=== PATIENT | female | born 1945 | race Caucasian/White ===

== ENCOUNTER 2017-03-20 06:46 | Day surgery (SDC) | payer OTHER ==
[2017-03-14 10:57] VITALS: BMI 25.7
[2017-03-20] MEDS: TROPICAMIDE 1% OPHTH SOLN 15 ML BOTTLE ONE ×3 (07:35→07:45)
[2017-03-20] MEDS: CYCLOPENTOLATE 2% OPHTH SOLN 2 ML BOTTLE ONE ×3 (07:35→07:45)
[2017-03-20] MEDS: CIPROFLOXACIN 0.3% EYE DROPS 5 ML BOTTLE ONE ×3 (07:35→07:45)
[2017-03-20] MEDS: PHENYLEPHRINE 2.5% OPHTH SOLN 15 ML BOTTLE ONE ×3 (07:35→07:45)
[2017-03-20] MEDS ORDERED: MIDAZOLAM HCL 2 MG/2 ML SINGLE DOSE VIAL ONE ×2 (08:34→09:01)
[2017-03-20] MEDS ORDERED: LIDOCAINE 1% P/F 10 MG/ML VIAL ONE (08:44)
[2017-03-20] MEDS ORDERED: TETRACAINE 0.5% OPHTH SOLN 2 ML BOTTLE ONE (08:44)
[2017-03-20] MEDS ORDERED: BSS (NA/CA/MG/K) BALANCED SALT SOLUTION OPHTH SOLN 15 ML BOTTLE ONE (08:44)
[2017-03-20] MEDS ORDERED: EPINEPHrine 1:1,000 1 MG/1 ML - 30ML VIAL (INJECTION) ONE (08:45)
[2017-03-20] MEDS ORDERED: CARBACHOL 0.01% INTRA-OCULAR 1.5 ML VIAL ONE (08:45)
[2017-03-20] MEDS ORDERED: NEO/POLYMYX B SULF/DEXAMETH OPHTHALMIC 5ML BOTTLE ONE (08:45)
[2017-03-20] MEDS ORDERED: TETRACAINE 0.5% OPHTH SOLN 2 ML BOTTLE OD ONE (08:59)
[2017-03-20] MEDS ORDERED: BSS (NA/CA/MG/K) BALANCED SALT SOLUTION OPHTH SOLN 15 ML BOTTLE OD ONE (09:02)
[2017-03-20] MEDS ORDERED: EPINEPHrine 1:1,000 1 MG/1 ML - 30ML VIAL (INJECTION) SQ ONE ×2 (09:02)
[2017-03-20] MEDS ORDERED: DISP SYRIN IO ONE (09:02)
[2017-03-20] MEDS ORDERED: CARBACHOL 0.01% INTRA-OCULAR 1.5 ML VIAL IO ONE (09:02)
[2017-03-20] MEDS ORDERED: HYALURONATE SODIUM IO ONE (09:02)
[2017-03-20] MEDS ORDERED: NEO/POLYMYX B SULF/DEXAMETH OPHTHALMIC 5ML BOTTLE OD ONE ×2 (09:04→09:12)
[2017-03-20] MEDS ORDERED: IBUPROFEN 600 MG TABLET (FP) PO ONE (10:05)
--- NOTE | 2017-03-20 10:06 | OP ---
DATE OF OPERATION: 03/20/2017 OPERATIVE PROCEDURE: Lens Phacoemulsification with Posterior Chamber Intraocular Lens Placement, Right Eye PREOPERATIVE DIAGNOSIS: Visually Significant Cataract of Right Eye POSTOPERATIVE DIAGNOSIS: Visually Significant Cataract of Right Eye SURGEON: Ferny Rice M.D. ANESTHESIA: MAC ANESTHESIOLOGIST: PROCEDURE: The patient was brought to the operating room and placed under monitored anesthesia care by Anesthesia. A drop of Tetracaine was then placed over the right eye. The patient was then prepped and draped in the usual sterile manner. A speculum was then placed over the right eye. The eye was then well irrigated with copious amounts of BSS (balanced salt solution). The operating microscope was then moved into position. A paracentesis was performed using a 15 degree blade. At this point 0.5 mL of 1% preservative free-lidocaine was injected into the anterior chamber. Amvisc plus was then injected into the anterior chamber. A clear corneal incision was then formed using a 2.2 mm keratome. A capsulorrhexis was then performed in a continuous circular fashion beginning with a cystotome completed with an Utratas forceps. Hydrodissection was then performed using BSS on a cannula. The phaco probe was then introduced through the corneal wound and the cataract was removed using the phaco chop technique. Approximately 3 seconds of absolute phaco time was used. The remaining cortex was then removed using irrigation and aspiration with an I/A probe. The capsule was then filled with regular Amvisc and the capsule was noted to be intact. A previously selected foldable posterior chamber intraocular lens was then injected into the capsule through the corneal wound using a lens injector. It was then dialed into position using a Sinskey hook. The Amvisc was then removed using irrigation and aspiration. Miostat was then injected through the paracentesis to constrict the pupil. The paracentesis and corneal wound were then hydrated and noted to be water tight. A drop of Maxitrol was then placed over the eye. The speculum was removed and clear shield was taped over the eye. The patient tolerated the procedure well and there were no surgical complications. The patient was asked to follow up in my office the next day. FERNY RICE M.D. [id number]
[2017-03-20] MEDS ORDERED: ONDANSETRON 4 MG/2 ML VIAL IVPUSH PRN (11:59)
[2017-03-20 12:36] VITALS: TEMP 98.2
[2017-03-20 12:40] VITALS: BP 128/68; PULSE 94
== END 2017-03-20 10:10 | disposition home or self-care (01) ==
LOC: FASU 06:46
PROVIDERS: ATTEND Ophthalmology
PROC: 08RJ3JZ Replacement of Right Lens with Synthetic Substitute, Percutaneous Approach (ICD-10-PCS; principal; 2017-03-20 09:02)
DX: H26.8 Other specified cataract (principal)

== ENCOUNTER 2017-04-24 06:17 | Day surgery (SDC) | payer OTHER ==
[2017-04-10 15:14] VITALS: BMI 27.0
[2017-04-24] MEDS: CYCLOPENTOLATE 2% OPHTH SOLN 2 ML BOTTLE ONE ×3 (06:55→07:05)
[2017-04-24] MEDS: PHENYLEPHRINE 2.5% OPHTH SOLN 15 ML BOTTLE ONE ×3 (06:55→07:05)
[2017-04-24] MEDS: TROPICAMIDE 1% OPHTH SOLN 15 ML BOTTLE ONE ×3 (06:55→07:05)
[2017-04-24] MEDS: CIPROFLOXACIN 0.3% EYE DROPS 5 ML BOTTLE ONE ×3 (06:55→07:05)
[2017-04-24] MEDS ORDERED: LIDOCAINE 1% P/F 10 MG/ML VIAL ONE (07:09)
[2017-04-24] MEDS ORDERED: CARBACHOL 0.01% INTRA-OCULAR 1.5 ML VIAL ONE (07:10)
[2017-04-24] MEDS ORDERED: NEO/POLYMYX B SULF/DEXAMETH OPHTHALMIC 5ML BOTTLE ONE (07:10)
[2017-04-24] MEDS ORDERED: BSS (NA/CA/MG/K) BALANCED SALT SOLUTION OPHTH SOLN 15 ML BOTTLE ONE (07:10)
[2017-04-24] MEDS ORDERED: TETRACAINE 0.5% OPHTH SOLN 2 ML BOTTLE ONE (07:10)
[2017-04-24] MEDS ORDERED: LIDOCAINE HCL 2% JELLY 10 ML CARTRIDGE ONE (07:28)
[2017-04-24] MEDS ORDERED: EPINEPHrine 1:1,000 1 MG/1 ML - 30ML VIAL (INJECTION) ONE (07:28)
[2017-04-24] MEDS ORDERED: MIDAZOLAM HCL 2 MG/2 ML SINGLE DOSE VIAL ONE ×2 (07:40→08:19)
[2017-04-24 08:52] VITALS: TEMP 98
[2017-04-24 09:11] VITALS: BP 108/60; PULSE 65
--- NOTE | 2017-04-24 10:51 | OP ---
DATE OF OPERATION: 04/24/2017 OPERATIVE PROCEDURE: Lens phacoemulsification with posterior chamber intraocular lens placement, left eye. PREOPERATIVE DIAGNOSIS: Visually significant cataract of left eye. POSTOPERATIVE DIAGNOSIS: Visually significant cataract of left eye. SURGEON: Ferny Rice MD ANESTHESIA: MAC. PROCEDURE: The patient was brought to the operating room and placed under monitored anesthesia care by Anesthesia. A drop of Tetracaine was then placed over the left eye. The patient was then prepped and draped in the usual sterile manner. A speculum was then placed over the left eye. The eye was then well irrigated with copious amounts of BSS (balanced salt solution). The operating microscope was then moved into position. A paracentesis was performed using a 15-degree blade. At this point 0.5 mL of 1% preservative-free lidocaine was injected into the anterior chamber. Amvisc Plus was then injected into the anterior chamber. A clear corneal incision was then formed using a 2.2-mm keratome. A capsulorrhexis was then performed in a continuous circular fashion beginning with a cystotome, completed with an Utratas forceps. Hydrodissection was then performed using BSS on a cannula. The phaco probe was then introduced through the corneal wound and the cataract was removed using the phaco chop technique. Approximately 3 seconds of absolute phaco time was used. The remaining cortex was then removed using irrigation and aspiration with an I/A probe. The capsule was then filled with regular Amvisc and the capsule was noted to be intact. A previously selected foldable posterior chamber intraocular lens was then injected into the capsule through the corneal wound using a lens injector. It was then dialed into position using a Sinskey hook. The Amvisc was then removed using irrigation and aspiration. Miostat was then injected through the paracentesis to constrict the pupil. The paracentesis and corneal wound were then hydrated and noted to be watertight. A drop of Maxitrol was then placed over the eye. The speculum was removed and clear shield was taped over the eye. The patient tolerated the procedure well and there were no surgical complications. The patient was asked to follow up in my office the next day. FERNY RICE M.D. [id number]
== END 2017-04-24 09:10 | disposition home or self-care (01) ==
LOC: FASU 06:17
PROVIDERS: ATTEND Ophthalmology
PROC: 08RK3JZ Replacement of Left Lens with Synthetic Substitute, Percutaneous Approach (ICD-10-PCS; principal; 2017-04-24 08:23)
DX: H26.8 Other specified cataract (principal)

== ENCOUNTER 2019-10-30 14:54 | Inpatient (IN) | payer OTHER ==
--- NOTE | 2019-10-30 14:58 | PDOC ---
History of Present Illness - General Chief Complaint: Revisit, Lab Variance Stated Complaint: ABNORMAL LABS, WEIGHT LOSS Time Seen by Provider: 10/30/19 14:55 History Source: Patient, Spouse ( at bedside), Other (Outpatient Lab Results in [facility] from Yesterday; telephone conversation with PCP Dr. Sterling) Exam Limitations: No Limitations - History of Present Illness Initial Comments: 74 y/o female presenting to [facility] on referral from Dr. Sterling. Pt was evaluated in clinic yesterday for generalized fatigue and loss of appetite. Labs revealed hyponatremia and hypokalemia. On arrival, pt denies any acute complaints. States she has been experiencing the fatigue and loss of appetite since approx. February. Believes she has lost approx. 15lbs this year. Intermittent abdominal pain and loose stool secondary to IBS. Denies fevers, chest pain, SOB, difficulty swallowing, acute abdominal pain, dysuria, hematuria, increased urinary frequency, hematochezia, or melena. No recent change in medication. 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 3 years ago. Initially evaluated at [place] then transferred to [facility]. Now managed on Keppra. Does not recall her most recent level. 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 [facility] - Lives at home with Past History - Travel History Traveled outside of the country in the last 30 days: No Close contact w/someone who was outside of country & ill: No - Medical History Allergies/Adverse Reactions: Allergies Allergy/AdvReac Type Severity Reaction Status Date / Time acetaminophen [From Tylenol] Allergy Severe Itching Verified 10/30/19 15:04 Penicillins Allergy Intermediate rash Verified 10/30/19 15:04 Sulfa (Sulfonamide Allergy Intermediate rash Verified 10/30/19 15:04 Antibiotics) naproxen [From Aleve] AdvReac Intermediate Nausea Verified 10/30/19 15:04 Home Medications: Ambulatory Orders Folic Acid 1 mg PO 6 DAYS/WEEK tablet 09/17/16 Methotrexate Sodium [Methotrexate] 15 mg PO WEEKLY tablet 09/17/16 Amiloride HCl 5 mg PO DAILY 03/14/17 Cholecalciferol (Vitamin D3) [Vitamin D3] 2,000 unit PO DAILY 03/14/17 Hydrochlorothiazide [Hctz -] 50 mg PO DAILY 03/14/17 Levetiracetam [Keppra Xr -] 1,500 mg PO BID 03/14/17 Verapamil HCl [Verapamil ER] 120 mg PO DAILY 03/14/17 Etanercept [Enbrel] 50 mg SQ WEEKLY 10/30/19 Anemia: No Asthma: No Cancer: No Cardiac Disorders: Yes (Mitral Valve Prolapse) CVA: No COPD: No CHF: No Dementia: No Diabetes: No Hx Glaucoma: Yes GI Disorders: Yes (ULCERS/GERD/IBS) Disorders: No HTN: Yes Hypercholesterolemia: Yes Liver Disease: No Seizures: Yes (08/2016-DUE TO CYST IN BRAIN) Thyroid Disease: No Other medical history: Moderate R Hip DJD, Sjogren's, Rheumatoid arthritis, HNP T12-L1 - Surgical History Abdominal Surgery: Yes ([facility] B[facility]) Appendectomy: No Cardiac Surgery: No Cholecystectomy: No Lung Surgery: No Neurologic Surgery: No Orthopedic Surgery: Yes (LAMINECTOMY 1977) - Family History Family Hx Cardiac Disorders: Mother (Ruptured thoracic aortic aneurysm) Family Hx Coronary Artery Disease: Mother, Father, Sister, Brother Family Hx Respiratory Disorders: Father (Emphysema) - Psycho-Social/Smoking History Smoking History: Never smoked Have you smoked in the past 12 months: No Review of Systems - Review of Systems Able to Perform ROS?: Yes Comments:: 10 point review of systems completed. All systems negative except as noted a samantha. *Physical Exam - Physical Exam Vital signs and nursing notes reviewed. Constitutional- Nontoxic elderly adult female in no acute distress or obvious discomfort. Found semi-fowlers on hospital bed. Answered all questions appropriately and completely. Head- Normocephalic. No obvious external signs of trauma. Eyes- Sclerae white. Conjunctiva pink, moist, and not injected. Neck- Supple, trachea is midline. Cardiovascular / Chest- Regular rate and regular rhythm. Peripheral pulses- radial pulses full. Respiratory- Breathing unlabored. Speaking in multi-word responses without pausing. Equal chest rise and fall. Gastrointestinal- abdomen is soft, non-tender, non-distended. No pulsatile masses. No overlying skin lesions or obvious signs of trauma. Neuro- Alert and oriented x4. Moving all four extremities spontaneously. No facial asymmetry. No slurred speech. Skin- Warm, dry, and intact. No bruising or rashes. - No R or L CVA tenderness. Psych- Affect- appropriate. Mood- normal. Speech was non-labored, non- pressured. ED Treatment Course - LABORATORY CBC & Chemistry Diagram: 10/30/19 15:50 10/30/19 15:50 Medical Decision Making - Medical Decision Making 74 y/o female presenting for hyponatremia and hypokalemia on outpatient labs. This is occurring in the setting of approx. 9 months of poor PO intake and a h/o seizures that are reportedly from electrolyte derangement. Afebrile. Vitals unremarkable for hypotension or tachycardia. Physical exam as described above. Pt appears euvolemic. UA revealed high urine sodium. CMP revealed hyponatremia and hypokalemia. Suspect these are chronic findings, and likely secondary to poor PO intake in combination with intermittent GI loss from IBS. Will replenish with PO KPhos packet and 3x K-riders. Anticipate this will correct for both sodium and potassium without over correction. Will placed the pt on observation given the reported h/o seizures from hyponatremia. Low clinical suspicion for imminent seizure given the likely chronic nature of these labs. 30 Oct 2019 17:15 PM Telephone discussion with SOFTWARE BUSINESS ANALYST Yadira. Verbally appraised of the pts HPI, ED course, and current plan of management. Will admit pt to med/surg for attending Dr. Eid. Case discussed with ED Attending Dr. Olsen. Newton Gonzales M.D., PGY3 Emergency Medicine Residency Discharge - Discharge Information Problems reviewed: Yes Clinical Impression/Diagnosis: Weakness, Hyponatremia, Hypokalemia, Loss of appetite for more than 2 weeks Condition: Fair - Admission Yes - Follow up/Referral Referrals: Maicol Sterling MD [Primary Care Provider] - - Patient Discharge Instructions - Post Discharge Activity
--- NOTE | 2019-10-30 15:14 | PDOC ---
Attending Attestation - Resident Resident Name: BishopNewton - ED Attending Attestation I have performed the following: I have examined & evaluated the patient, The case was reviewed & discussed with the resident, I agree w/resident's findings & plan, Exceptions are as noted - HPI HPI: 10/30/19 15:14 74 YOF with h/o RA, hyponatremia with associated seizures, hypokalemia, HTN, and HLD who p/w 15 lb weight loss over the past few months, and lab abnormalities. She was instructed by her PCP, Dr. Sterling, to come in for these findings on her outpatient labs (Na 126 and K 2.6). Notes she feels weak and has no appetite. States she has been taking all medications as prescribed, takes folate with her methotrexate adherently. - Physicial Exam PE: 10/30/19 16:30 GENERAL: elderly, very pleasant, tired, nontoxic-appearing, no distress, answers questions appropriately, accompanied by at bedside HEENT: PERRLA, EOMI, a bit dry mucous membranes NECK/BACK: no midline ttp, no spinal stepoff or deformity, no hematoma, full ROM, neck supple CARDIOVASCULAR: regular rate/rhythm, no MGR, strong peripheral pulses, capillary refill <2 seconds, extremities wwp, no edema LUNGS/RESPIRATORY: no respiratory distress, CTAB GI/ABDOMEN: symmetric [id number], normoactive BS, soft, no ttp, no midline pulsatile masses : no CVA tenderness MSK/EXTREMITIES: no acute-appearing muscle atrophy, no acute deformity DERM/SKIN: warm and dry, no pallor, no jaundice, no rash, no pathologic- appearing bruising, no skin breakdown, no cuts, no lesions NEUROLOGICAL: a bit hypokinetic with possible depressed affect, GCS 15, CN II- XII grossly intact, 5/5 strength proximally and distally, no facial droop - Medical Decision Making 10/30/19 16:31 74YOF p/w weight loss, weakness, hyponatremia and hypokalemia on outpatient labs. Initial Vital Signs Temp Pulse Resp BP Pulse Ox 98.4 F 96 H 15 119/69 98 10/30/19 14:55 10/30/19 14:55 10/30/19 14:55 10/30/19 14:55 10/30/19 14:55 Most likely metabolic abnormality very like [id number] diet, electrolyte derangement, vitamin deficiency, anemia, thyroid disorder, malignancy, etc. Per the patient's recollection of the symptom course this has been indolent onset and is therefore less likely to be acute emergency such as ACS. Provider Orders Category Date Time Status ELECTROCARDIOGRAM [CARD] Stat Cardiology 10/30/19 14:56 Ordered EKG needed NOW Care 10/30/19 14:56 Completed CBC WITH DIFFERENTIAL Stat Lab 10/30/19 15:50 Completed COMP METABOLIC PANEL Stat Lab 10/30/19 15:50 Completed COVID-19 Stat Lab 10/30/19 15:50 Received CREATININE, URINE RANDOM Stat Lab 10/30/19 15:14 Results ELECTROLYTES,URINE Stat Lab 10/30/19 15:14 Results MAGNESIUM Stat Lab 10/30/19 15:50 Completed OSMOLALITY,SERUM Stat Lab 10/30/19 15:50 Received OSMOLALITY,URINE Stat Lab 10/30/19 15:14 Results PHOSPHOROUS Stat Lab 10/30/19 15:50 Completed THYROID STIMULATING HORMONE Stat Lab 10/30/19 15:50 Received UA ([facility] ONLY) Stat Lab 10/30/19 15:14 Completed URINE MICROSCOPIC (CHANDU) Stat Lab 10/30/19 15:14 Completed KCl 10 Meq Ivpb [Potassium Chloride 10 Meq Premix Ivpb Medication 10/30/19 16:30 Active -] 10 meq in 100 ml IVPB Q60M KCl 10 Meq Ivpb [Potassium Chloride 10 Meq Premix Ivpb Medication 10/30/19 16:26 Discontinued -] 10 meq in 100 ml IVPB UD Magnesium 1Gm/D5w - Medication 10/30/19 16:26 Discontinued 1 gm in 100 ml IVPB UD Magnesium Sulfate Medication 10/30/19 16:23 Discontinued 1 gm IVPB ONCE ONE Naph,Mb-Db/K pH,Mbdb [PHOS-NaK PACKET -] Medication 10/30/19 16:17 Discontinued 1 packet PO ONCE ONE URINE CULTURE Stat Micro 10/30/19 15:14 Received IV Insert NOW Phy Order 10/30/19 14:57 Active CXR [CHEST PA & LAT] [RAD] Stat Radiology 10/30/19 15:37 Completed Medications Generic Name Dose Route Start Last Admin Trade Name Freq PRN Reason Stop Dose Admin Potassium Chloride 10 meq in 100 mls @ 100 mls/hr 10/30/19 16:30 Potassium Chloride 10 Meq Premix Ivpb - IVPB 10/30/19 19:29 Q60M DARLYN Discontinued Medications Generic Name Dose Route Start Last Admin Trade Name Katherin PRN Reason Stop Dose Admin Magnesium Sulfate/Dextrose Confirm 10/30/19 16:26 Magnesium 1gm/D5w - Administered 10/30/19 16:27 Dose 1 gm in 100 mls @ IVPB .STK-MED ONE Potassium Chloride Confirm 10/30/19 16:26 Potassium Chloride 10 Meq Premix Ivpb - Administered 10/30/19 16:27 Dose 10 meq in 100 mls @ IVPB .STK-MED ONE Magnesium Sulfate 1 gm 10/30/19 16:23 Magnesium Sulfate IVPB 10/30/19 16:24 ONCE ONE Potassium Phos/Sodium Phos 1 packet 10/30/19 16:17 Phos-Nak Packet - PO 10/30/19 16:18 ONCE ONE Lab Results WBC 6.4 K/mm3 (4.0-10.8) 10/30/19 15:50 RBC 3.92 M/mm3 (3.60-5.2) 10/30/19 15:50 Hgb 13.6 GM/dl (10.7-15.3) 10/30/19 15:50 Hct 40.1 % (32.4-45.2) 10/30/19 15:50 MCV 102.2 fl (80-96) H 10/30/19 15:50 MCH 34.6 pg (25.7-33.7) H 10/30/19 15:50 MCHC 33.9 g/dl (32.0-36.0) 10/30/19 15:50 RDW 13.9 % (11.6-15.6) 10/30/19 15:50 Plt Count 269 K/MM3 (134-434) 10/30/19 15:50 MPV 6.8 fl (7.5-11.1) L 10/30/19 15:50 Absolute Neuts (auto) 4.1 K/mm3 10/30/19 15:50 Neutrophils % 64.7 % (42.8-82.8) 10/30/19 15:50 Lymphocytes % 21.5 % (8-40) 10/30/19 15:50 Monocytes % 10.5 % (3.8-10.2) H 10/30/19 15:50 Eosinophils % 2.3 % (0-4.5) 10/30/19 15:50 Basophils % 1.0 % (0-2.0) 10/30/19 15:50 Sodium 123 mmol/L (136-145) L 10/30/19 15:50 Potassium 2.6 mmol/L (3.5-5.1) L* 10/30/19 15:50 Chloride 83 mmol/L (98-107) L 10/30/19 15:50 Carbon Dioxide 27 mmol/L (21-32) 10/30/19 15:50 Anion Gap 13 MMOL/L (8-16) 10/30/19 15:50 BUN 7.0 mg/dl (7-18) 10/30/19 15:50 Creatinine 0.7 mg/dl (0.55-1.3) 10/30/19 15:50 Est GFR (CKD-EPI)AfAm 98.92 10/30/19 15:50 Est GFR (CKD-EPI)NonAf 85.35 10/30/19 15:50 Random Glucose 98 mg/dl (74-106) 10/30/19 15:50 Calcium 8.7 mg/dl (8.5-10) 10/30/19 15:50 Phosphorus 2.4 mg/dl (2.5-4.9) L 10/30/19 15:50 Magnesium 1.7 mg/dL (1.8-2.4) L 10/30/19 15:50 Total Bilirubin 0.6 mg/dl (0.2-1) 10/30/19 15:50 AST 27 U/L (15-37) 10/30/19 15:50 ALT 34 U/L (13-61) 10/30/19 15:50 Alkaline Phosphatase 57 U/L (45-117) 10/30/19 15:50 Total Protein 6.8 g/dl (6.4-8.2) 10/30/19 15:50 Albumin 4.1 g/dl (3.4-5.0) 10/30/19 15:50 TSH Cancelled 10/30/19 15:50 Urine Color Yellow 10/30/19 15:14 Urine Appearance Clear 10/30/19 15:14 Urine pH 7.0 (4.5-8) 10/30/19 15:14 Urine Protein Negative (NEGATIVE) 10/30/19 15:14 Urine Glucose (UA) Negative (NEGATIVE) 10/30/19 15:14 Urine Ketones Negative (NEGATIVE) 10/30/19 15:14 Urine Blood Trace-intact (NEGATIVE) 10/30/19 15:14 Urine Nitrite Positive (NEGATIVE) H 10/30/19 15:14 Urine Bilirubin Negative (NEGATIVE) 10/30/19 15:14 Urine Urobilinogen 0.2 (0.2-1.0) 10/30/19 15:14 Ur Leukocyte Esterase 2+ (NEGATIVE) 10/30/19 15:14 Urine RBC 2-5 /hpf (0-4) 10/30/19 15:14 Urine WBC 20-40 (NEGATIVE) 10/30/19 15:14 Ur Transition Epith Cell Few /hpf 10/30/19 15:14 Urine Bacteria Many /hpf (NEGATIVE) 10/30/19 15:14 Ur Random Creatinine 62.9 mg/dL 10/30/19 15:14 Ur Random Sodium 53 MMOL/L (40-220) 10/30/19 15:14 Ur Random Potassium 15.4 MMOL/L (25-125) L 10/30/19 15:14 Ur Random Chloride 46 MMOL/L (110-250) L 10/30/19 15:14 Patient given K-phos and KCl riders for K 2.6. Potassium depletion likely contributing to serum sodium depletion - will replete potassium and have her take PO fluids for now without IVF to avoid overcorrecting sodium. Will ensure her chemistries are re-checked this evening to verify that both Na and K are trending up. If needed she will have IV fluid drip rate calculated for her electrolyte levels at that time. Patient will require admission for marked electrolyte abnormalities. See admission proceedings per resident note. Heart Score/ECG Review #1 10/30/19 15:03 Sinus rhythm, one PVC, normal axis and intervals, TWI in I, II, aVL, and lateral precordial leads, no SABIHA Discharge - Discharge Information Problems reviewed: Yes Clinical Impression/Diagnosis: Weakness, Hyponatremia, Hypokalemia Condition: Guarded - Admission Yes - Follow up/Referral Referrals: Maicol Sterling MD [Primary Care Provider] - - Patient Discharge Instructions - Post Discharge Activity
[2019-10-30 15:40] LABS: CREATININE, URINE RANDOM 62.9 mg/dL
[2019-10-30 15:58] LABS: EOS % 2.3 % (0-4.5); HEMATOCRIT 40.1 % (32.4-45.2); HEMOGLOBIN 13.6 GM/dl (10.7-15.3); LYMPH % 21.5 % (8-40); MCH 34.6 pg (25.7-33.7); MCHC 33.9 g/dl (32.0-36.0); MEAN CELL VOLUME 102.2 fl (80-96); MEAN PLT VOLUME 6.8 fl (7.5-11.1); MONO % 10.5 % (3.8-10.2); NEUT % 64.7 % (42.8-82.8); PLATELET COUNT 269 K/MM3 (134-434); RBC 3.92 M/mm3 (3.60-5.2); RDW 13.9 % (11.6-15.6); WHITE BLOOD COUNT 6.4 K/mm3 (4.0-10.8)
[2019-10-30 16:00] LABS: EPITHELIAL CELLS FEW /hpf
[2019-10-30 16:14] LABS: ALBUMIN 4.1 g/dl (3.4-5.0); BILIRUBIN,TOTAL 0.6 mg/dl (0.2-1); CALCIUM 8.7 mg/dl (8.5-10); CREATININE 0.7 mg/dl (0.55-1.3); MAGNESIUM 1.7 mg/dL (1.8-2.4); PHOSPHOROUS 2.4 mg/dl (2.5-4.9); TOT PROT 6.8 g/dl (6.4-8.2)
[2019-10-30 16:16] LABS: POTASSIUM 2.6 mmol/L (3.5-5.1)
[2019-10-30] MEDS ORDERED: NAPH,MB-DB/K PH,MBDB POWDER PACKET PO ONE (16:17)
[2019-10-30] MEDS ORDERED: MAGNESIUM SULF 50% (8.12 MEQ/2 ML-1 GM VIAL) IVPB ONE (16:23)
[2019-10-30] MEDS ORDERED: MAGNESIUM 1GM/D5W - 1 GM/100 ML IVPB IVPB ONE (16:26)
[2019-10-30] MEDS ORDERED: KCL 10 MEQ IVPB 10 MEQ/100 ML INFUS.BAG IVPB ONE (16:26)
[2019-10-30] MEDS: KCL 10 MEQ IVPB 10 MEQ/100 ML INFUS.BAG IVPB SCH ×3 (16:40→21:18)
[2019-10-30] MEDS ORDERED: SODIUM CHLORIDE 1,000 ML IV SCH (17:30)
--- NOTE | 2019-10-30 17:42 | HP ---
CHIEF COMPLAINT: PCP:Dr. Ceballos HISTORY OF PRESENT ILLNESS: 74 year old female with history of seizures who presented to [facility] as referred by Dr. Sterling. She was evaluated in the clinic yesterday for symptoms of generalized fatigue and loss of appetite since approximately from February. She reported she lost about 15 pounds this year. She reported having intermittent abdominal pain and loose stool secondary to IBS. She denied fevers, chest pain, SOB, difficulty swallowing, acute abdominal pain, dysuria, hematuria, increased urinary frequency, hematochezia, or melena. No recent medication changes. Patient has a history of seizures and continued on Keppra. 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[employer] [facility] Lives at home with Allergies acetaminophen [From Tylenol] Allergy (Severe, Verified 10/30/19 15:04) Itching Penicillins Allergy (Intermediate, Verified 10/30/19 15:04) rash Sulfa (Sulfonamide Antibiotics) Allergy (Intermediate, Verified 10/30/19 15:04) rash naproxen [From Aleve] Adverse Reaction (Intermediate, Verified 10/30/19 15:04) Nausea HOME MEDICATIONS: Home Medications Medication Instructions Recorded Folic Acid 1 mg PO 6 DAYS/WEEK tablet 09/17/16 Methotrexate Sodium [Methotrexate] 15 mg PO WEEKLY tablet 09/17/16 Amiloride HCl 5 mg PO DAILY 03/14/17 Cholecalciferol (Vitamin D3) 2,000 unit PO DAILY 03/14/17 [Vitamin D3] Hydrochlorothiazide [Hctz -] 50 mg PO DAILY 03/14/17 Levetiracetam [Keppra Xr -] 1,500 mg PO BID 03/14/17 Verapamil HCl [Verapamil ER] 120 mg PO DAILY 03/14/17 Etanercept [Enbrel] 50 mg SQ WEEKLY 10/30/19 REVIEW OF SYSTEMS CONSTITUTIONAL: Absent: fever, chills, diaphoresis, generalized weakness, malaise, loss of appetite, weight change HEENT: Absent: rhinorrhea, nasal congestion, throat pain, throat swelling, difficulty swallowing, mouth swelling, ear pain, eye pain, visual changes CARDIOVASCULAR: Absent: chest pain, syncope, palpitations, irregular heart rate, lightheadedness, peripheral edema RESPIRATORY: Absent: cough, shortness of breath, dyspnea with exertion, orthopnea, wheezing, stridor, hemoptysis GASTROINTESTINAL: Absent: abdominal pain, abdominal distension, nausea, vomiting, diarrhea, constipation, melena, hematochezia GENITOURINARY: Absent: dysuria, frequency, urgency, hesitancy, hematuria, flank pain, genital pain MUSCULOSKELETAL: Absent: myalgia, arthralgia, joint swelling, back pain, neck pain SKIN: Absent: rash, itching, pallor HEMATOLOGIC/IMMUNOLOGIC: Absent: easy bleeding, easy bruising, lymphadenopathy, frequent infections ENDOCRINE: Absent: unexplained weight gain, unexplained weight loss, heat intolerance, cold intolerance NEUROLOGIC: Absent: headache, focal weakness or paresthesias, dizziness, unsteady gait, seizure, mental status changes, bladder or bowel incontinence PSYCHIATRIC: Absent: anxiety, depression, suicidal or homicidal ideation, hallucinations. PHYSICAL EXAMINATION Vital Signs - 24 hr 10/30/19 14:55 Temperature 98.4 F Pulse Rate 96 H Respiratory 15 Rate Blood Pressure 119/69 O2 Sat by Pulse 98 Oximetry (%) Laboratory Results - last 24 hr 10/30/19 10/30/19 10/30/19 15:14 15:14 15:50 WBC 6.4 RBC 3.92 Hgb 13.6 Hct 40.1 MCV 102.2 H MCH 34.6 H MCHC 33.9 RDW 13.9 Plt Count 269 MPV 6.8 L Absolute Neuts (auto) 4.1 Neutrophils % 64.7 Lymphocytes % 21.5 Monocytes % 10.5 H Eosinophils % 2.3 Basophils % 1.0 Sodium Potassium Chloride Carbon Dioxide Anion Gap BUN Creatinine Est GFR (CKD-EPI)AfAm Est GFR (CKD-EPI)NonAf Random Glucose Calcium Phosphorus Magnesium Total Bilirubin AST ALT Alkaline Phosphatase Total Protein Albumin TSH Urine Color Yellow Urine Appearance Clear Urine pH 7.0 Urine Protein Negative Urine Glucose (UA) Negative Urine Ketones Negative Urine Blood Trace-intact Urine Nitrite Positive H Urine Bilirubin Negative Urine Urobilinogen 0.2 Ur Leukocyte Esterase 2+ Urine RBC 2-5 Urine WBC 20-40 Ur Transition Epith Cell Few Urine Bacteria Many Ur Random Creatinine 62.9 Ur Random Sodium 53 Ur Random Potassium 15.4 L Ur Random Chloride 46 L 10/30/19 10/30/19 10/30/19 15:50 15:50 15:50 WBC RBC Hgb Hct MCV MCH MCHC RDW Plt Count MPV Absolute Neuts (auto) Neutrophils % Lymphocytes % Monocytes % Eosinophils % Basophils % Sodium 123 L Potassium 2.6 L* Chloride 83 L Carbon Dioxide 27 Anion Gap 13 BUN 7.0 Creatinine 0.7 Est GFR (CKD-EPI)AfAm 98.92 Est GFR (CKD-EPI)NonAf 85.35 Random Glucose 98 Calcium 8.7 Phosphorus 2.4 L Magnesium 1.7 L Total Bilirubin 0.6 AST 27 ALT 34 Alkaline Phosphatase 57 Total Protein 6.8 Albumin 4.1 TSH 1.24 Cancelled Urine Color Urine Appearance Urine pH Urine Protein Urine Glucose (UA) Urine Ketones Urine Blood Urine Nitrite Urine Bilirubin Urine Urobilinogen Ur Leukocyte Esterase Urine RBC Urine WBC Ur Transition Epith Cell Urine Bacteria Ur Random Creatinine Ur Random Sodium Ur Random Potassium Ur Random Chloride ASSESSMENT/PLAN In summary Mrs. Us is a 74 year old female with history of seizures(on Keppra) and IBS who was referred to the ER by Dr. Ceballos for evaluation of symptoms of generalized fatigue, loss of appetite and weight loss of about 15 pounds since February. She was found to have hyponatremia, hypokalemia and hypomagnesia. She was also found to have an abnormal UA(positive nitrite, 2+ leukoesterase, WBC 20-40). She is being admitted to [facility] for management for metabolic derangement and UTI. 1. electrolyte imbalance secondary to poor po intake TSH normal potassium and magnesium repleted will repeat BMP and magnesium level at 8pm and once repletion completed c/w IVF 1/2 NS with 20 meq KCL @ 100cc/hr repeat BMP and magnesium in am maintain potassium >4.0 and magnesium >2.0 monitor on telemetry for ventricular ectopy monitor neurological status urine and serum osmolarity low renal studies normal,consult Nephrology in am if no improvement in sodium level consider GI evaluation in the setting of weight loss/ anorexia- inpatient versus outpatient 2. uti wbc normal currently afebrile allergic to PCN and bactrim (develops rash and hives) ordered IV levofloxacin 500 mg daily urine culture pending, follow up on c&s consider ID consult in am 3. hx of seizure no active issue c/w keppra 1500 mg BID check keppra level in am 4. htn normotensive c/w verapamil hold hctz, amiloride 5. anemia hgb/gct normal, MCV 102.2, MCH 34.6 continue with folic acid check b12 level and iron studies in am 6. Rule Out COVID follow up on COVID results maintain strict isolation precautions for droplet and contact maintain oxygen saturation >90% FEN IVF 1/2 NS with 20 meq KCL at 100cc/hr repeat BMP and magnesium level at 8pm tonight and then in am regular diet dvt prophtylaxis lovenox 40 mg daily Family Medical History Family History: As Documented Visit type - Medication Review Med list reviewed for High Risk Meds patients 65 and older: Yes - Emergency Visit Emergency Visit: Yes ED Registration Date: 10/30/19 Care time: The patient presented to the Emergency Department on the above date and was hospitalized for further evaluation of their emergent condition. - New Patient This patient is new to me today: Yes Date on this admission: 10/30/19 - Critical Care Critical Care patient: No
[2019-10-30] MEDS ORDERED: CEFTRIAXONE 1 GM in DEXTROSE 5%-WATER - 50 ML IVPB SCH (17:45)
[2019-10-30] MEDS ORDERED: POTASSIUM CHLORIDE 10 MEQ in SODIUM CHLORIDE 0.45% 1,000 ML IVPB SCH (17:45)
[2019-10-30 18:39] VITALS: BMI 23.6
[2019-10-30] MEDS ORDERED: PIPERACILLIN/TAZOB 3.375 GM 3.375 GM in DEXTROSE 5%-WATER - 50 ML IVPB SCH (19:15)
[2019-10-30] MEDS: SODIUM CHLORIDE 0.45%/POT 20 MEQ/1,000 ML INFUS.BAG IV SCH (19:44)
[2019-10-30] MEDS: ENOXAPARIN NA (PORCINE) 40 MG/0.4 ML DISP.SYRIN SQ SCH (19:45)
[2019-10-30] MEDS: levETIRAcetam XR 750 MG TAB PO SCH (21:33)
[2019-10-30 23:17] LABS: CALCIUM 8.7 mg/dl (8.5-10); CREATININE 0.6 mg/dl (0.55-1.3); MAGNESIUM 2.1 mg/dL (1.8-2.4); POTASSIUM 3.1 mmol/L (3.5-5.1)
[2019-10-31] MEDS: POTASSIUM CHLORIDE ORAL LIQUID 20 MEQ/15 ML PO SCH ×2 (00:10→05:39)
--- OUTSIDE RECORDS SUMMARY | 2019-10-31 01:35 | XMS ---
:1945 Author Organization [facility] Care Team Providers Name Role Phone Fader, M Unavailable Fader, M Unavailable Fader, M Unavailable Fader, M Unavailable Fader, M Unavailable Fader, M Unavailable Fader, M Unavailable Fader, M Unavailable Fader, M Unavailable Fader, M Unavailable Fader, M Unavailable Fader, M Unavailable Fader, M Unavailable Re-disclosure Warning The records that you are about to access may contain information from federally- assisted alcohol or drug abuse programs. If such information is present, then the following federally mandated warning applies: This information has been disclosed to you from records protected by federal confidentiality rules (42 CFR part 2). The federal rules prohibit you from making any further disclosure of this information unless further disclosure is expressly permitted by the written consent of the person to whom it pertains or as otherwise permitted by 42 CFR part 2. A general authorization for the release of medical or other information is NOT sufficient for this purpose. The Federal rules restrict any use of the information to criminally investigate or prosecute any alcohol or drug abuse patient.The records that you are about to access may contain highly sensitive health information, the redisclosure of which is protected by Article 27-F of the [facility] Public Health law. If you continue you may haveaccess to information: Regarding HIV / AIDS; Provided by facilities licensed or operated by the [facility] Office of Mental Health; or Provided by the [facility] Office for People With Developmental Disabilities. If such information is present, then the following [facility] mandated warning applies: This information has been disclosed to you from confidential records which are protected by state law. State law prohibits you from making any further disclosure of this information without the specific written consent of the person to whom it pertains, or as otherwise permitted by law. Any unauthorized further disclosure in violation of state law may result in a fine or shelter sentence or both. A general authorization for the release of medical or other information is NOT sufficient authorization for further disclosure. Allergies and Adverse Reactions Type Description Substance Reaction Status Data Source(s ) Drug allergy SULFA DRUG Sulfur Active MED[facility] ([facility] [place]) Drug allergy PENICILLIN Penicillin Active MEDGEN ([facility]) Encounters Encounter Providers Location Date Indications Data Source(s ) Attender: Maicol 10/29/2019 MEDGEN ( [facility] 12:00:[address] [facility]) Office Attender: Maicol Sterling 10/29/2019 12:00:00 AM E DT MEDGEN ([facility] [place]) Office Attender: Maicol Sterling 10/29/2019 12:00:00 AM E DT MEDGEN ([facility] [place]) Office Immunizations Vaccine Date Status Description Data Source(s) New in 2011. IIV4 11/07/2017 12:00:00 [place] [place]ations Medication Brand Start Product Dose Route Administrative Pharmacy [facility] Indications Reaction Description Data Name Date Form Instructions Instructions Source(s) Amiloride AMILOR 10/28/ TABLET 90 complet AMILOR CAREN-HY MEDGEN (St Hydrochlori CAREN-HY 2019 ed DROCHLOROTH I [facility] de 5 MG / DROCHL 12:00: AZIDE Medic al, Hydrochloro OROTHI 00 AM ) thiazide 50 AZIDE: EDT MG Oral 304120 Tablet AMILORIDE-H YDROCHLOROT HIAZIDE:977 883 Verapamil VERAPA // TABLET, 90 complet VERAP BRAD MEDGEN (St hydrochlori MIL:89 2019 EXTENDED ed Radha hn's de 120 MG 7659 12:00: RELEASE Medic al, Extended 00 AM PC) Release EDT Oral Tablet VERAPAMIL:8 60021 Baclofen 10 LIORES 12/31/ TABLET 30 complet GINGER ESAL MEDGEN (St MG Oral AL:202 2018 ed [facility] Tablet 109 12:00: Medical, [Lioresal] 00 AM PC) LIORESAL:20 EST 210 Cholecalcif VITAMI 12/31/ TABLET 30 complet MEENA MIN D3 MEDGEN (St dimitry 1999 N 2019 ed [facility] UNT Oral D3:801 12:00: Medical , Tablet 663 00 AM PC) VITAMIN EST D3:023092 Cholecalcif VITAMI 11/12/ TABLET 30 complet MEENA MIN D3 MED[facility] (St dimitry 1999 N 2018 ed [facility] UNT Oral D3:801 12:00: Medical , Tablet 663 00 AM PC) VITAMIN EDT D3:967463 Folic Acid FOLIC 11/12/ TABLET 30 complet FOLIC ACID MEDGEN (St 1 MG Oral ACID:3 2017 ed [facility] Tablet 21817 12:00: Medical, FOLIC 00 AM PC) ACID:186400 EDT Omeprazole PRILOS 11/12/ DELAYED 30 complet PRIL OSEC [facility] (St 20 MG EC:207 2017 RELEASE ed [facility] Delayed 212 12:00: CAPSULE Medical , Release 00 AM PC) Oral EDT Capsule [Prilosec] PRILOSEC:20 7212 COMPOUND complet COMPOUND FO R MEDGEN (St FOR JOINT 2018 ed JOINT PAIN [facility] PAIN: 12:00: Medical, 00 AM PC) EDT 0.98 ML ENBREL 11/12/ SOLUTION 30 complet ENBREL MEDGEN (St Etanercept PREFIL 2018 ed PREFILLED Radha olga's 50 MG/ML LED 12:00: SYRINGE Medica l, Prefilled SYRING 00 AM PC) Syringe E:8026 EDT [Enbrel] 52 ENBREL PREFILLED SYRINGE:697 732 Levetiracet LEVETI 11/07/ TABLET 30 complet LEVE TIRACETA MED[facility] (St am 750 MG RACETA 2018 ed M [facility] Oral Tablet M:3112 12:00: Medi milla, LEVETIRACET 90 00 AM ) AM:[id number] EDT Methotrexat METHOT 06/12/ TABLET 30 complet METH OTREXATE MED[facility] (St e 2.5 MG REXATE 2017 ed [facility] Oral Tablet :56145 12:00: Medi milla, METHOTREXAT 5 00 AM PC) E:[id number] EDT Insurance Providers Payer name Policy type Policy ID Covered Covered libertarian's Policy P kendall / Coverage libertarian ID relationship to Michel Inf ormation type michel AETNA MEDICARE MEBTKMNT SP MEBTK MNT AETNA MEDICARE MEBTKMNT SP MEBTK MNT AETNA MEDICARE MEBTKMNT 1 MEBTK MNT [facility] [id number] CARE MEDICARE COMPLETE UNITED [id number] HEALTHCARE (MEDICARE) Problems, Conditions, and Diagnoses Code Display Name Description Problem Type Effective Data Dates Source(s) R63.4 Abnormal weight ABNORMAL WEIGHT Problem 10/29/2019 MEDG EN (St loss LOSS 12:00:00 AM [facility], ) K21.9 Gastro-esophageal GASTRO-ESOPHAGEAL Problem 12/31/2018 MEDGEN (St reflux disease REFLUX DISEASE 12:00:00 AM [facility] without esophagitis WITHOUT ESOPHAGITIS [facility] Medical, PC) 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 Problem 019 MEDGEN (St myelopathy or MYELOPATHY OR 12:00:00 AM [facility] radiculopathy, RADICULOPATHY, EDT Medica , ) cervical region CERVICAL REGION E66.3 Overweight OVERWEIGHT Problem 11/07/2017 MEDGEN (St 12:00:00 AM [facility], PC) D64.9 Anemia, unspecified ANEMIA, UNSPECIFIED Problem 018 MEDGEN (St 12:00:00 AM [facility], ) G40.909 Epilepsy, EPILEPSY, Problem 11/07/2017 MEDGEN (St unspecified, not UNSPECIFIED, NOT 12:00:00 AM J [facility] intractable, INTRACTABLE, EDT Medical, P C) without status WITHOUT STATUS epilepticus EPILEPTICUS Z23 Encounter for ENCOUNTER FOR Problem 11/07/2017 MEDGEN ( St immunization IMMUNIZATION 12:00:00 AM [facility], PC) M16.10 Unilateral primary UNILATERAL PRIMARY Problem 8 MEDGEN ([address] osteoarthritis, OSTEOARTHRITIS, 12:00:00 AM [facility] unspecified hip UNSPECIFIED HIP EDT [facility], ) 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 Problem 11/07/2017 MEDGEN (St osteoarthritis of OSTEOARTHRITIS OF 12:00:00 AM [facility] hip HIP [facility], ) 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 Problem 11/07/2017 MEDGEN ([address] arthritis, ARTHRITIS, 12:00:00 AM [facility] unspecified UNSPECIFIED [facility], ) Z72.4 Inappropriate diet INAPPROPRIATE DIET Problem 8 MEDGEN (St and eating habits AND EATING HABITS 12:00:00 AM [facility], ) R45.4 Irritability and IRRITABILITY AND Problem 05/17/2017 ME DGEN (St anger ANGER 12:00:00 AM [facility], ) I10 Essential (primary) ESSENTIAL (PRIMARY) Problem 018 MEDGEN (St hypertension HYPERTENSION 12:00:00 AM [facility], ) Surgeries/Procedures Procedure Description Date Indications Data Source(s) Documentation of current 10/29/2019 MED [facility] ([facility] medications (procedure) 12:00:00 AM EDMAI Gardiner) Documentation of current 10/29/2019 MED [facility] ([facility] medications (procedure) 12:00:00 AM MAI Bowie) Documentation of current 10/29/2019 MED [facility] ([facility] medications (procedure) 12:00:00 AM MAI Bowie) OFFICE OUTPATIENT VISIT 25 10/29/2019 Jaiden RIVERA ([facility] MINUTES 12:00:00 AM [facility], ) Documentation of current 12/31/2018 MED [facility] ([facility] medications (procedure) 12:00:00 AM MAI Sorensen) Documentation of current 12/31/2018 MED [facility] ([facility] medications (procedure) 12:00:00 AM MAI Sorensen) Documentation of current 12/31/2018 MED [facility] ([facility] medications (procedure) 12:00:00 AM MAI Sorensen) Documentation of current 12/31/2018 MED [facility] ([facility] medications (procedure) 12:00:00 AM MAI Sorensen) Documentation of current 12/31/2018 MED [facility] ([facility] medications (procedure) 12:00:00 AM EST MAI Medeiros) Influenza virus vaccine, 12/31/2018 MED [facility] ([facility] split virus, when 12:00:00 AM BRADEN Ashley ) administered to individuals 3 years of age and older, for intramuscular use (flulaval) Annual wellness visit, 12/31/2018 MEDGE N ([facility] includes a personalized 12:00:00 AM MAI Sorensen) prevention plan of service (pps), subsequent visit Administration of 12/31/2018 [facility] ([facility] influenza virus vaccine 12:00:00 AM MAI Sorensen) ECG ROUTINE ECG W/LEAST 12 12/31/2018 Jaiden RIVERA ([facility] LDS W/I&R 12:00:00 AM [facility] Gabi ) Documentation of current 09/17/2018 MED [facility] ([facility] medications (procedure) 12:00:00 AM EDMAI Gardiner) Documentation of current 09/17/2018 MED [facility] ([facility] medications (procedure) 12:00:00 AM EDMAI Gardiner) Documentation of current 09/17/2018 MED [facility] ([facility] medications (procedure) 12:00:00 AM MAI Bowie) Documentation of current 09/17/2018 MED [facility] ([facility] medications (procedure) 12:00:00 AM EDMAI Gardiner) OFFICE OUTPATIENT VISIT 15 09/17/2018 Jaiden RIVERA ([facility] MINUTES 12:00:00 AM AMMY [facility] PC) Documentation of current 11/07/2017 MED GEN ([facility] medications (procedure) 12:00:00 AM EDMAI Gardiner) Documentation of current 11/07/2017 MED GEN ([facility] medications (procedure) 12:00:00 AM EDGokul gatica PC) Documentation of current 11/07/2017 MED [facility] ([facility] medications (procedure) 12:00:00 AM EDMAI Gardiner) Documentation of current 11/07/2017 MED [facility] ([facility] medications (procedure) 12:00:00 AM EDMAI Gardiner) Documentation of current 11/07/2017 MED [facility] ([facility] medications (procedure) 12:00:00 AM EDT [facility], ) Documentation of current 11/07/2017 MED GEN ([facility] medications (procedure) 12:00:00 AM EDT [facility], ) Documentation of current 11/07/2017 MED GEN ([facility] medications (procedure) 12:00:00 AM EDT [facility], ) Influenza virus vaccine, 11/07/2017 MED [facility] ([facility] split virus, when 12:00:00 AM [facility] , ) administered to individuals 3 years of age and older, for intramuscular use (flulaval) Annual wellness visit, 11/07/2017 MEDGE N ([facility] includes a personalized 12:00:00 AM EDT [facility], ) prevention plan of service (pps), subsequent visit Administration of 11/07/2017 [facility] ([facility] influenza virus vaccine 12:00:00 AM T [facility], ) ECG ROUTINE ECG W/LEAST 12 11/07/2017 Jaiden RIVERA ([facility] LDS W/I&R 12:00:[address] [facility]) Documentation of current 05/17/2017 MED GEN ([facility] medications (procedure) 12:00:00 AM EDT [facility], ) Documentation of current 05/17/2017 MED GEN ([facility] medications (procedure) 12:00:00 AM EDT [facility], ) Documentation of current 05/17/2017 MED GEN ([facility] medications (procedure) 12:00:00 AM EDT [facility], ) OFFICE OUTPATIENT VISIT 25 05/17/2017 Jaiden RIVERA ([facility] MINUTES 12:00:00 AM [facility], ) Results ID Date Data Source [id number] 09/12/2019 09:15:00 AM EDT [facility] Name Value Range Interpretation Description Data Sup porting Code Source(s) Document(s ) 2019 Novel WYSDAR Coronavirus RNA Interpretation Unspecified Specimen Qualitative DIAMOND Probe Detection This lab was ordered by [facility][id number] and reported by [facility]. 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 Alcohol Use Alcohol Use Alcohol Use Alcohol Use Social Social Mental Mental Health Health History History Mental Mental History History Normal Normal Tobacco Tobacco Status: Status: Never Never smoker smoker Smoking 10/29/2019 Unknown if ever completed Unknown if ever MEDG EN (St 12:00:00 AM EDT smoked [facility], ) Vital Signs ID Date Data Source UNK Name Value Range Interpretation Code Description Data Source(s) Heart rate 90 /min 90 /min [facility] ([facility] , ) Respiratory rate 16 /min 16 /min MEDGEN ( [facility]) Body temperature 96.8 F 96.8 F MEDGEN ( [facility]) Inhaled oxygen 97 % 97 % MEDGEN ([facility], ) Body mass index 23.2 kg/m2 23.2 kg/m2 MEDGEN (S t (BMI) [Ratio] [facility], ) Diastolic blood 76 mm[Hg] 76 mm[Hg] MEDGEN (S t pressure [facility]) Systolic blood 135 mm[Hg] 135 mm[Hg] MEDGEN ([facility]) Body weight 123 lb 123 lb MEDGEN ([facility]) Body height 61 in 61 in MEDGEN ([facility]) Heart rate 105 /min 105 /min MEDGEN ([facility]) Respiratory rate 17 /min 17 /min MEDGEN ( [facility]) Body temperature 98.5 F 98.5 F MEDGEN ( [facility]) Inhaled oxygen 93 % 93 % MEDGEN ([facility], ) Body mass index 25.7 kg/m2 25.7 kg/m2 MEDGEN (S t (BMI) [Ratio] [facility] [place]) Diastolic blood 77 mm[Hg] 77 mm[Hg] MEDGEN (S t pressure [facility]) Systolic blood 141 mm[Hg] 141 mm[Hg] MEDGEN ([facility]) Body weight 136 lb 136 lb MEDGEN ([facility]) Body height 61 in 61 in MEDGEN ([facility]) Heart rate 86 /min 86 /min MEDGEN ([facility]) Respiratory rate 16 /min 16 /min MEDGEN ( [facility]) Inhaled oxygen 96 % 96 % MEDGEN ([facility]) Body mass index 27.8 kg/m2 27.8 kg/m2 MEDGEN (S t (BMI) [Ratio] [facility] [place]) Diastolic blood 76 mm[Hg] 76 mm[Hg] MEDGEN (S t [facility]) Systolic blood 146 mm[Hg] 146 mm[Hg] MEDGEN ([facility]) Body weight 146 lb 146 [facility] Body height 60.75 in 60.75 in MEDGEN ([facility]) Heart rate 86 /min 86 /min MEDGEN ([facility]) Respiratory rate 16 /min 16 /min MEDGEN ( [facility]) Body mass index 28.6 kg/m2 28.6 kg/m2 MEDGEN (S t (BMI) [Ratio] [facility] [place]) Diastolic blood 76 mm[Hg] 76 mm[Hg] MEDGEN (S [facility]) Systolic blood 114 mm[Hg] 114 mm[Hg] MEDGEN ([facility]) Body weight 150 lb 150 lb MEDGEN ([facility]) Body height 60.75 in 60.75 in MEDGEN ([facility]) Heart rate 92 /min 92 /min MEDGEN ([facility]) Respiratory rate 14 /min 14 /min MEDGEN ( [facility]) Body mass index 27.6 kg/m2 27.6 kg/m2 MEDGEN (S t (BMI) [Ratio] [facility] [place]) Diastolic blood 80 mm[Hg] 80 mm[Hg] MEDGEN (S pressure [facility]) Systolic blood 142 mm[Hg] 142 mm[Hg] MEDGEN ([facility]) Body weight 146 lb 146 lb MEDGEN ([facility]) Body height 61 in 61 in MEDGEN ([facility])
[2019-10-31] MEDS: SODIUM CHLORIDE 0.45%/POT 20 MEQ/1,000 ML INFUS.BAG IV SCH (03:27)
[2019-10-31 08:30] LABS: HEMATOCRIT 37.6 % (32.4-45.2); HEMOGLOBIN 12.5 GM/dl (10.7-15.3); MCH 33.9 pg (25.7-33.7); MCHC 33.2 g/dl (32.0-36.0); MEAN CELL VOLUME 102.1 fl (80-96); MEAN PLT VOLUME 6.9 fl (7.5-11.1); PLATELET COUNT 260 K/MM3 (134-434); RBC 3.68 M/mm3 (3.60-5.2); RDW 13.5 % (11.6-15.6); WHITE BLOOD COUNT 3.6 K/mm3 (4.0-10.8)
[2019-10-31 08:41] LABS: CALCIUM 8.8 mg/dl (8.5-10); CREATININE 0.7 mg/dl (0.55-1.3); PHOSPHOROUS 2.4 mg/dl (2.5-4.9); POTASSIUM 4.7 mmol/L (3.5-5.1)
--- NOTE | 2019-10-31 08:41 | PN ---
Physical Exam: SUBJECTIVE: Patient seen and examined. Did not sleep well. Had diarrhea after taking PO K. No other focal complaints. OBJECTIVE: Vital Signs Period Temp Pulse Resp BP Sys/Nogueira Pulse Ox Last 24 Hr 98.2 F-99.2 F 68-96 15-18 119-136/60-72 97-99 GENERAL: The patient is awake, alert, and fully oriented, in no acute distress. HEAD: Normal with no signs of trauma. EYES: PERRL, extraocular movements intact, sclera anicteric, conjunctiva clear. No ptosis. ENT: Ears normal, nares patent, oropharynx clear without exudates, moist mucous membranes. NECK: Trachea midline, full range of motion, supple. LUNGS: Breath sounds equal, clear to auscultation bilaterally, no wheezes, no crackles, no accessory muscle use. HEART: Regular rate and rhythm, S1, S2 without murmur, rub or gallop. ABDOMEN: Soft, nontender, nondistended, normoactive bowel sounds, no guarding, no rebound, no hepatosplenomegaly, no masses. EXTREMITIES: 2+ pulses, warm, well-perfused, no edema. NEUROLOGICAL: Cranial nerves II through XII grossly intact. Normal speech, gait not observed. PSYCH: Normal mood, normal affect. SKIN: Warm, dry, normal turgor, no rashes or lesions noted Laboratory Results - last 24 hr 10/30/19 10/30/19 10/30/19 15:14 15:14 15:50 WBC 6.4 RBC 3.92 Hgb 13.6 Hct 40.1 MCV 102.2 H MCH 34.6 H MCHC 33.9 RDW 13.9 Plt Count 269 MPV 6.8 L Absolute Neuts (auto) 4.1 Neutrophils % 64.7 Lymphocytes % 21.5 Monocytes % 10.5 H Eosinophils % 2.3 Basophils % 1.0 Sodium Potassium Chloride Carbon Dioxide Anion Gap BUN Creatinine Est GFR (CKD-EPI)AfAm Est GFR (CKD-EPI)NonAf Random Glucose Serum Osmolality Calcium Phosphorus Magnesium Total Bilirubin AST ALT Alkaline Phosphatase Total Protein Albumin TSH Urine Color Yellow Urine Appearance Clear Urine pH 7.0 Urine Protein Negative Urine Glucose (UA) Negative Urine Ketones Negative Urine Blood Trace-intact Urine Nitrite Positive H Urine Bilirubin Negative Urine Urobilinogen 0.2 Ur Leukocyte Esterase 2+ Urine RBC 2-5 Urine WBC 20-40 Ur Transition Epith Cell Few Urine Bacteria Many Urine Osmolality 213 L Ur Random Creatinine 62.9 Ur Random Sodium 53 Ur Random Potassium 15.4 L Ur Random Chloride 46 L 10/30/19 10/30/19 10/30/19 15:50 15:50 15:50 WBC RBC Hgb Hct MCV MCH MCHC RDW Plt Count MPV Absolute Neuts (auto) Neutrophils % Lymphocytes % Monocytes % Eosinophils % Basophils % Sodium 123 L Potassium 2.6 L* Chloride 83 L Carbon Dioxide 27 Anion Gap 13 BUN 7.0 Creatinine 0.7 Est GFR (CKD-EPI)AfAm 98.92 Est GFR (CKD-EPI)NonAf 85.35 Random Glucose 98 Serum Osmolality 260 L Calcium 8.7 Phosphorus 2.4 L Magnesium 1.7 L Total Bilirubin 0.6 AST 27 ALT 34 Alkaline Phosphatase 57 Total Protein 6.8 Albumin 4.1 TSH 1.24 Cancelled Urine Color Urine Appearance Urine pH Urine Protein Urine Glucose (UA) Urine Ketones Urine Blood Urine Nitrite Urine Bilirubin Urine Urobilinogen Ur Leukocyte Esterase Urine RBC Urine WBC Ur Transition Epith Cell Urine Bacteria Urine Osmolality Ur Random Creatinine Ur Random Sodium Ur Random Potassium Ur Random Chloride 10/30/19 10/31/19 22:32 07:20 WBC 3.6 L RBC 3.68 Hgb 12.5 Hct 37.6 MCV 102.1 H MCH 33.9 H MCHC 33.2 RDW 13.5 Plt Count 260 MPV 6.9 L Absolute Neuts (auto) Neutrophils % Lymphocytes % Monocytes % Eosinophils % Basophils % Sodium 123 L Potassium 3.1 L Chloride 85 L Carbon Dioxide 28 Anion Gap 10 BUN 7.0 Creatinine 0.6 Est GFR (CKD-EPI)AfAm 104.07 Est GFR (CKD-EPI)NonAf 89.79 Random Glucose 125 H Serum Osmolality Calcium 8.7 Phosphorus Magnesium 2.1 Total Bilirubin AST ALT Alkaline Phosphatase Total Protein Albumin TSH Urine Color Urine Appearance Urine pH Urine Protein Urine Glucose (UA) Urine Ketones Urine Blood Urine Nitrite Urine Bilirubin Urine Urobilinogen Ur Leukocyte Esterase Urine RBC Urine WBC Ur Transition Epith Cell Urine Bacteria Urine Osmolality Ur Random Creatinine Ur Random Sodium Ur Random Potassium Ur Random Chloride Active Medications Generic Name Dose Route Start Last Admin Trade Name Freq PRN Reason Stop Dose Admin Enoxaparin Sodium 40 mg 10/30/19 18:45 10/30/19 19:45 Lovenox - SQ 40 mg DAILY DARLYN Administration Folic Acid 1 mg 10/31/19 10:00 Folic Acid - PO [id number]@1000 DARLYN Potassium Chloride/Sodium Chloride 20 meq in 1,000 mls @ 100 mls/hr 10/30/19 17:45 10/31/19 03:27 1/2ns+20meq Kcl IV 100 mls/hr Q10H DARLYN Administration Levofloxacin 500 mg in 100 mls @ 100 mls/hr 10/30/19 20:45 10/30/19 21:33 Levaquin 500 Mg Premixed Ivpb - IVPB 100 mls/hr DAILY DARLYN Administration Protocol Levetiracetam 1,500 mg 10/30/19 22:00 10/30/19 21:33 Keppra Xr - PO 1,500 mg BID DARLYN Administration Methotrexate 15 mg 11/05/19 10:00 Mexate - PO Th@1000 DARLYN Verapamil HCl 120 mg 10/31/19 10:00 Calan Sr - PO DAILY DARLYN ASSESSMENT/PLAN: Mrs. Us is a 74-year-old female with history of seizures (on Keppra) and IBS who was referred to the ER by Dr. Ceballos for evaluation of symptoms of generalized fatigue, loss of appetite and weight loss of about 15 pounds since February, admitted with electrolyte derangements (hyponatremia, hypokalemia and hypomagnesia) and UTI. 1. Electrolyte imbalance, likely secondary to poor PO intake and diuretics TSH normal K normalized On 02/12 NS + 20 mEw K @ 100 ML/hr --> Sodium 123 to 126 over 16h --> change to NS 75 mL/hr, goal correction 6-12 mEq over 24h maintain potassium >4.0 and magnesium >2.0 monitor on telemetry for ventricular ectopy monitor neurological status urine and serum osmolarity low renal studies normal,consult Nephrology in am if no improvement in sodium level GI evaluation in the setting of weight loss/ anorexia- patient follows with Dr. Crane and last had colonoscopy in 2017 (normal except for several polyps) 2. UTI No fever or leukocytosis allergic to PCN and bactrim (develops rash and hives) ordered IV levofloxacin 500 mg daily--> can change to PO urine culture pending, follow up on c&s consider ID consult in am 3. hx of seizure no active issue, last seizure 3 yrs ago c/w keppra 1500 mg BID check keppra level in am 4. htn normotensive c/w verapamil hold hctz, amiloride 5. anemia hgb/gct normal, MCV 102.2, MCH 34.6 continue with folic acid check b12 level and iron studies in am 6. Rule Out COVID follow up on COVID results maintain strict isolation precautions for droplet and contact maintain oxygen saturation >90% FEN NS @ 75 mL/hr Repeat sodium 3pm and daily regular diet dvt prophtylaxis lovenox 40 mg daily DISPO: Continues to require inpatient services. Discussed with Dr. Payton covering Dr. Sterling. Visit type - Emergency Visit Emergency Visit: Yes ED Registration Date: 10/30/19 Care time: The patient presented to the Emergency Department on the above date and was hospitalized for further evaluation of their emergent condition. - New Patient This patient is new to me today: Yes Date on this admission: 11/01/19 - Critical Care Critical Care patient: No - Medication Review Med list reviewed for High Risk Meds patients 65 and older: Yes
--- NOTE | 2019-10-31 09:03 | EKG ---
Test Reason : Blood Pressure : / mmHG Vent. Rate : 086 BPM Atrial Rate : 086 BPM P-R Int : 198 ms QRS Dur : 096 ms QT Int : 380 ms P-R-T Axes : 044 008 118 degrees QTc Int : 454 ms SINUS RHYTHM WITH OCCASIONAL PREMATURE VENTRICULAR COMPLEXES ABNORMAL ECG NO PREVIOUS ECGS AVAILABLE Confirmed by Janis Madrigal ([id number]) on 10/31/2019 9:02:32 AM Referred By: Confirmed By:Janis Madrigal
[2019-10-31] MEDS: VERAPAMIL HCL 120 MG E.R. TABLET PO SCH (09:11)
[2019-10-31] MEDS: levETIRAcetam XR 750 MG TAB PO SCH ×2 (09:12→21:37)
[2019-10-31] MEDS: FOLIC ACID 1 MG TABLET (FP) PO SCH (09:12)
[2019-10-31] MEDS: ENOXAPARIN NA (PORCINE) 40 MG/0.4 ML DISP.SYRIN SQ SCH (09:13)
[2019-10-31] MEDS ORDERED: PT OWN MED DRAWER 7, Y5N ONE ×2 (10:06→21:35)
[2019-10-31] MEDS ORDERED: SODIUM CHLORIDE 1,000 ML IV SCH (10:45)
[2019-10-31 11:54] LABS: IRON SERUM 103 ug/dL (50-175); TOTAL IRON BINDING CAPACITY 282 ug/dL (250-450)
[2019-10-31 15:18] LABS: CALCIUM 8.3 mg/dl (8.5-10); CREATININE 0.7 mg/dl (0.55-1.3); POTASSIUM 3.6 mmol/L (3.5-5.1)
[2019-10-31] MEDS ORDERED: SODIUM CHLORIDE 0.9%/KCL 20 MEQ/1,000 ML INFUS.BAG IV SCH (15:45)
[2019-10-31] MEDS ORDERED: MELATONIN 5 MG TABLETS PO ONE (21:32)
[2019-11-01 06:54] LABS: BASO % 0.5 % (0-2.0); EOS % 3.3 % (0-4.5); HEMATOCRIT 32.9 % (32.4-45.2); HEMOGLOBIN 11.3 GM/dL (10.7-15.3); LYMPH % 45.9 % (8-40); MCH 34.7 pg (25.7-33.7); MCHC 34.5 g/dl (32.0-36.0); MEAN CELL VOLUME 100.6 fl (80-96); MEAN PLT VOLUME 6.9 fl (7.5-11.1); MONO % 15.3 % (3.8-10.2); PLATELET COUNT 232 K/MM3 (134-434); RBC 3.27 M/mm3 (3.60-5.2); RDW 14.3 % (11.6-15.6); WHITE BLOOD COUNT 3.7 K/mm3 (4.0-10.0)
[2019-11-01] MEDS ORDERED: PT OWN MED DRAWER 7, Y5N ONE (07:35)
[2019-11-01 08:23] LABS: BLOOD UREA NITROGEN 3.3 mg/dL (7-18); CALCIUM 8.2 mg/dL (8.5-10.1); CREATININE 0.7 mg/dL (0.55-1.3); MAGNESIUM 1.6 mg/dL (1.8-2.4); POTASSIUM 3.8 mmol/L (3.5-5.1)
--- NOTE | 2019-11-01 09:05 | DS ---
Physical Exam: SUBJECTIVE: Patient seen and examined. Feeling well. No pain or other complaints. OBJECTIVE: Vital Signs Period Temp Pulse Resp BP Sys/Nogueira Pulse Ox Last 24 Hr 98.3 F-98.5 F 74-94 17-19 114-137/55-74 98-100 PHYSICAL EXAM GENERAL: The patient is awake, alert, and fully oriented, in no acute distress. HEAD: Normal with no signs of trauma. EYES: PERRL, extraocular movements intact, sclera anicteric, conjunctiva clear. ENT: Ears normal, nares patent, oropharynx clear without exudates, moist mucous membranes. NECK: Trachea midline, full range of motion, supple. LUNGS: Breath sounds equal, clear to auscultation bilaterally, no wheezes, no crackles, no accessory muscle use. HEART: Regular rate and rhythm, S1, S2 without murmur, rub or gallop. ABDOMEN: Soft, nontender, nondistended, normoactive bowel sounds, no guarding, no rebound, no hepatosplenomegaly, no masses. EXTREMITIES: 2+ pulses, warm, well-perfused, no edema. NEUROLOGICAL: Cranial nerves II through XII grossly intact. Normal speech, gait not observed. PSYCH: Normal mood, normal affect. SKIN: Warm, dry, normal turgor, no rashes or lesions noted. LABS Laboratory Results - last 24 hr 10/30/19 10/31/19 10/31/19 15:50 07:20 07:20 WBC RBC Hgb Hct MCV MCH MCHC RDW Plt Count MPV Absolute Neuts (auto) Neutrophils % Lymphocytes % Monocytes % Eosinophils % Basophils % Nucleated RBC % Sodium Potassium Chloride Carbon Dioxide Anion Gap BUN Creatinine Est GFR (CKD-EPI)AfAm Est GFR (CKD-EPI)NonAf Random Glucose Calcium Magnesium Iron 103 TIBC 282 Iron Saturation 36 Unsaturated IBC 179 L Vitamin B12 480 COVID-19 ([facility]) Not detected 10/31/19 11/01/19 11/01/19 15:00 05:30 05:30 WBC 3.7 L RBC 3.27 L Hgb 11.3 Hct 32.9 MCV 100.6 H MCH 34.7 H MCHC 34.5 RDW 14.3 Plt Count 232 MPV 6.9 L Absolute Neuts (auto) 1.3 L Neutrophils % 35.0 L Lymphocytes % 45.9 H Monocytes % 15.3 H Eosinophils % 3.3 Basophils % 0.5 Nucleated RBC % 0 Sodium 124 L 137 Potassium 3.6 3.8 Chloride 90 L 103 Carbon Dioxide 25 29 Anion Gap 9 6 L BUN 5.0 L 3.3 L Creatinine 0.7 0.7 Est GFR (CKD-EPI)AfAm 98.92 98.92 Est GFR (CKD-EPI)NonAf 85.35 85.35 Random Glucose 113 H 105 Calcium 8.3 L 8.2 L Magnesium 1.6 L Iron TIBC Iron Saturation Unsaturated IBC Vitamin B12 COVID-19 ([facility]) HOSPITAL COURSE: ASSESSMENT/PLAN: Mrs. Us is a 74-year-old female with history of seizures (on Keppra) and IBS who was referred to the ER by Dr. Sterling for evaluation of symptoms of generalized fatigue, loss of appetite and weight loss of about 15 pounds since February, admitted with electrolyte derangements (hyponatremia, hypokalemia and hypomagnesia) and UTI. 1. Electrolyte imbalance, likely secondary to poor PO intake and diuretics Potassium, magnesium, and sodium repleted Sodium normalized after 36 hours of fluid administration Holding HCTZ and amiloride, reviewed with patient that she should hold until PCP followup 2. Anorexia and weight loss Recommended outpatient GI evaluation in the setting of weight loss/ anorexia- patient follows with Dr. Crane and last had colonoscopy in 2017 (normal except for several polyps), agrees to follow up 2. UTI No fever or leukocytosis allergic to PCN and bactrim (develops rash and hives) Levaquin 500mg daily, to continue outpatient 3. Hx of seizure No active issue, last seizure 3 yrs ago Continue AEDs 4. HTN normotensive c/w verapamil hold hctz, amiloride 5. Anemia Hgb/gct normal, MCV 102.2, MCH 34.6 Continue with folic acid 6. Rule Out COVID COVID neg Discussed with Dr. Payton covering Dr. Sterling. Date of Admission:10/30/19 Date of Discharge: 11/01/19 Minutes to complete discharge: 45 Discharge Summary Problems reviewed: Yes Reason For Visit: WEAKNESS/HYPOKALEMIA/HYPONATREMIA Current Active Problems Hypokalemia (Acute) Hyponatremia (Acute) Loss of appetite for more than 2 weeks (Acute) Weakness (Acute) Condition: Improved - Instructions Diet, Activity, Other Instructions: -Stop taking hydrochlorothiazide and amiloride for now as these were likely contributing to your electrolyte imbalances in the setting of poor appetite -Follow up with Dr. Sterling for repeat lab work in one week -Continue taking levofloxacin for urinary tract infection for 2 more days (prescription sent to [facility] in [place]) -Please follow up with Dr Crane regarding your poor appetite and weight loss as he may wish to do additional testing -Return here for any new or concerning symptoms Referrals: Maicol Sterling MD [Primary Care Provider] - Alden Crane MD [Staff Physician] - Disposition: HOME - Home Medications Comprehensive Discharge Medication List: Ambulatory Orders Folic Acid 1 mg PO 6 DAYS/WEEK tablet 09/17/16 Methotrexate Sodium [Methotrexate] 15 mg PO WEEKLY tablet 09/17/16 Amiloride HCl 5 mg PO DAILY 03/14/17 Cholecalciferol (Vitamin D3) [Vitamin D3] 2,000 unit PO DAILY 03/14/17 Hydrochlorothiazide [Hctz -] 50 mg PO DAILY 03/14/17 Levetiracetam [Keppra Xr -] 1,500 mg PO BID 03/14/17 Verapamil HCl [Verapamil ER] 120 mg PO DAILY 03/14/17 Etanercept [Enbrel] 50 mg SQ WEEKLY 10/30/19 This patient is new to me today: No Emergency Visit: Yes ED Registration Date: 10/30/19 Care time: The patient presented to the Emergency Department on the above date and was hospitalized for further evaluation of their emergent condition. Critical Care patient: No - Discharge Referral Referred to [facility] Med [facility] Yes Physician Referral: Maicol Sterling MD (Int Med)
[2019-11-01] MEDS: FOLIC ACID 1 MG TABLET (FP) PO SCH (09:13)
[2019-11-01] MEDS: ENOXAPARIN NA (PORCINE) 40 MG/0.4 ML DISP.SYRIN SQ SCH ×2 (09:13→09:39)
[2019-11-01] MEDS: levETIRAcetam XR 750 MG TAB PO SCH (09:15)
[2019-11-01] MEDS ORDERED: PATIENT'S OWN MEDICATION (NON-FORMULARY) (Etanercept [Enbrel] 50 MG) SQ SCH (09:15)
[2019-11-01] MEDS ORDERED: MAGNESIUM SULF 50% (8.12 MEQ/2 ML-1 GM VIAL) IVPB ONE ×2 (09:15)
[2019-11-01] MEDS: VERAPAMIL HCL 120 MG E.R. TABLET PO SCH (09:17)
[2019-11-01 09:25] VITALS: BP 113/65; PULSE 95; TEMP 98.2
[2019-11-05] MEDS ORDERED: METHOTREXATE 2.5 MG TABLET PO SCH (10:00)
== END 2019-11-01 12:16 | disposition home or self-care (01) | DRG 690 ==
LOC: FER 14:54 → FM/S 17:01 → OBSVTOIN 17:24
PROVIDERS: ADMIT Internal Medicine; ATTEND Registered Nurse Emergency
DX: N39.0 Urinary tract infection, site not specified (principal); E87.1 Hypo-osmolality and hyponatremia; E87.6 Hypokalemia; E83.42 Hypomagnesemia; R63.0 Anorexia; I10 Essential (primary) hypertension; D64.9 Anemia, unspecified; R63.4 Abnormal weight loss; Z68.23 Body mass index [BMI] 23.0-23.9, adult; R53.1 Weakness; E78.5 Hyperlipidemia, unspecified
CPT/HCPCS: 36415; 71046-TC-FY; 80048; 80053; 80177; 81003; 81015; 82436; 82565; 82607; 83540; 83550; 83735; 83930; 83935; 84100; 84133; 84300; 84443; 85025; 85027; 87086; 87186; 93005; 99285-25; G0378; J3480; U0003

== ENCOUNTER 2022-06-07 07:47 | Day surgery (SDC) | payer OTHER ==
[2022-06-06 14:34] VITALS: BMI 21.8
[2022-06-07 11:42] VITALS: BP 115/61; PULSE 88; RESP 20; TEMP 97.8
== END 2022-06-07 11:55 | disposition home or self-care (01) ==
LOC: FASU-ENDO 07:47
PROVIDERS: ATTEND Internal Medicine Gastroenterology
PROC: 0DJD8ZZ Inspection of Lower Intestinal Tract, Via Natural or Artificial Opening Endoscopic (ICD-10-PCS; principal; 2022-06-07 08:51)
DX: Z12.11 Encounter for screening for malignant neoplasm of colon (principal); Z86.010 Personal history of colon polyps; K57.30 Diverticulosis of large intestine without perforation or abscess without bleeding; Z83.71 Family history of colonic polyps